=== PATIENT | male | born 1945 | race African-American/Black ===

== ENCOUNTER 2020-12-31 09:32 | Emergency (ER) | payer OTHER ==
[~2020-12-31] VITALS: Ht 170.2 cm; Wt 100.0 kg
[~2020-12-31 09:32] MED LIST: ATOR10TA84 PO; FINA-27 PO; UBID100C44 PO; [UNRECOGNIZED DRUG - CODE] IV
[2020-12-31 11:10] LABS: BASOPHILS % (AUTO) 0.4 % (0.0-2.0); EOSINOPHILS % (AUTO) 0.8 % (1.0-6.0); HEMATOCRIT 39.1 % (41-53); HEMOGLOBIN 12.9 g/dL (13.5-17.5); LYMPHOCYTES # (AUTO) 1.3 K/uL (1.0-4.8); LYMPHOCYTES % (AUTO) 14.8 % (22.0-44.0); MEAN CORPUSCULAR HEMOGLOBIN 27.8 pg (26.0-34.0); MEAN CORPUSCULAR HGB CONC 32.9 G/dL (31.0-37.0); MEAN CORPUSCULAR VOLUME 84 fL (80-100); MONOCYTES # (AUTO) 1.1 K/uL (0.1-1.0); MONOCYTES % (AUTO) 12.9 % (2.0-9.0); NEUTROPHILS # (AUTO) 6.3 K/uL (1.8-7.7); NEUTROPHILS % (AUTO) 71.1 % (40.0-70.0); PLATELET COUNT (AUTO) 209 K/uL (150-450); RED BLOOD CELL COUNT(AUTO) 4.64 MIL/uL (4.50-5.90); RED CELL DISTRIBUTION WIDTH 14.6 % (11.5-14.5)
[2020-12-31 11:15] LABS: COVID AG,FIA SOURCE NASAL SWAB
[2020-12-31 11:17] LABS: ANION GAP 12 mmol/L (8-16); CALCIUM, TOTAL 9.2 mg/dL (8.8-10.5); CARBON DIOXIDE 24 mmol/L (22-29); CHLORIDE 107 mmol/L (98-107); CREATININE 1.27 mg/dL (0.60-1.30); GLOMERULAR FILTR. RATE CALC > 60 mL/min (>60); GLUCOSE,RANDOM 99 mg/dL (70-110); POTASSIUM 3.9 mmol/L (3.5-5.1); SODIUM SERUM 143 mmol/L (136-145); UREA NITROGEN, BLOOD 19 mg/dL (7-18)
[2020-12-31 11:24] LABS: D-DIMER 1.17 mg/L FEU (0.00-0.50); INR 1.1 (0.9-1.1); PROTHROMBIN TIME 11.2 SEC (9.4-11.6)
[2020-12-31 11:25] LABS: LACTIC ACID 1.4 mmol/L (0.4-2.0)
[2020-12-31 11:31] LABS: B-TYPE NATRIURETIC PEPTIDE 33 pg/mL (0-100)
[2020-12-31 11:42] LABS: ALANINE AMINOTRANSFERASE 24 U/L (12-78); ALBUMIN 3.7 g/dL (3.4-5.0); ALKALINE PHOSPHATASE 54 U/L (46-116); ASPARTATE AMINOTRANSFERASE 16 U/L (15-37); BILIRUBIN,TOTAL 0.7 mg/dL (0.1-1.0); C-REACTIVE PROTEIN QUANT 4.21 mg/dL (0.00-0.30); CREATINE KINASE, TOTAL ONLY 137 U/L (39-308); FERRITIN 193 ng/mL (26-388); LACTATE DEHYDROGENASE 181 U/L (85-227); TOTAL PROTEIN, SERUM 7.5 g/dL (6.4-8.2)
[2020-12-31 12:43] LABS: INFLUENZA TYPE A NEGATIVE FOR TYPE A (NEGATIVE); INFLUENZA TYPE B NEGATIVE FOR TYPE B (NEGATIVE)
[2020-12-31] MEDS ORDERED: CefTRIAXone 1 GM/DEXTROSE 50 ML IV ONE (13:45)
[2020-12-31] MEDS ORDERED: DOXYCYCLINE HYCLATE 100 MG in DEXTROSE 5%-WATER 100 ML IV ONE (13:45)
[2020-12-31 17:18] VITALS: BP 152/59
== END 2020-12-31 17:41 | disposition designated cancer center or children's hospital (05) ==
LOC: EMS 09:39
DX: J18.9 Pneumonia, unspecified organism (principal); Z20.822 Contact with and (suspected) exposure to COVID-19; I10 Essential (primary) hypertension; E78.00 Pure hypercholesterolemia, unspecified; F32.9 Major depressive disorder, single episode, unspecified
CPT/HCPCS: 36415; 71045; 80053; 82550; 82728; 83605; 83615; 83880; 84145; 84484; 85025; 85379; 85384; 85610; 85730; 86140; 87040; 87426; 87804; 93005; 93970; 96365; 96368; 99285; J0696; J3490; J7060; U0003